=== PATIENT | female | born 1985 | race Caucasian/White ===

== ENCOUNTER 2017-01-07 11:04 | Emergency (ER) | payer MEDICAID | END 2017-01-07 11:40 | disposition left against medical advice (07) | LOC: CED 11:04 | DX: S67.10XA Crushing injury of unspecified finger(s), initial encounter (principal); Y93.55 Activity, bike riding; Z53.21 Procedure and treatment not carried out due to patient leaving prior to being seen by health care provider ==

== ENCOUNTER 2017-02-08 18:00 | Emergency (ER) | payer MEDICAID ==
[2017-02-08 18:11] VITALS: BP 129/77; PULSE 68; RESP 18; TEMP 97.9; O2SAT 95
--- NOTE | 2017-02-08 18:51 | UCPHY ---
H & P Time Seen by Provider: 02/08/17 18:37 Patient Type: Established HPI/ROS: This patient complains of right paraspinous cervical pain that extends from the lateral neck to the trapezius region. She injured the area moving her son's mode while basketball hoop in the driveway 3 days ago. She reports noticing a stretch and discomfort to that area when she lifted the basketball hoop then worsened when she moved to sandbag. Since that time she has taken Tylenol intermittent with mild improvement but reports today 7/10 achy pain. Pain worsened slightly with movement. No other exacerbating or alleviating factors. ROS: No midline pain. Neuro: No numbness tingling weakness. No recent head trauma. No headache. No confusion 7 point ROS is otherwise negative. Smoking Status: Former smoker Physical Exam: Physical Exam Vital signs are normal. General: No acute distress HEENT: Atraumatic. Neck: No midline tenderness. She has paraspinous muscular tenderness from the trapezius extensive lateral neck. She has increased pain with lateral flexion away from the affected side. She maintains good range of motion for flexion and extension. Eyes: Pupils equal and react to light. Extraocular motions are intact. Lungs: No respiratory distress. Cardiac: Brisk capillary refill is intact throughout. Skin: No rash or pallor. Neuro: Alert and oriented x3. She maintains normal light touch sensory exam bilateral upper extremities and lower extremities. She maintains 5/5 strength throughout upper and lower extremities and 1+ symmetric patellar DTRs bilaterally. with no sensorimotor deficits. Initial differential diagnosis: Muscle strain, disc herniation without radiculopathy, doubt abscess or other Constitutional: Initial Vital Signs Temperature (C) 36.6 C 02/08/17 18:06 Heart Rate 68 02/08/17 18:06 Respiratory Rate 18 02/08/17 18:06 Blood Pressure 129/77 H 02/08/17 18:06 O2 Sat (%) 95 02/08/17 18:06 O2 Delivery Mode Room Air Allergies/Adverse Reactions: No Known Allergies Allergy (Verified 01/21/15 11:17) Home Medications: Medication Instructions Recorded Methocarbamol [Robaxin 750 mg (*)] 750 - 1,500 mg PO QID PRN #30 tab 02/08/17 MDM/Departure - MDM ED Course/Re-evaluation: I counseled this. Patient regarding muscle strain - Depart Disposition: Home, Routine, Self-Care Clinical Impression: Strain of neck muscle Qualifiers: Encounter type: initial encounter Qualified Code(s): S16.1XXA - Strain of muscle, fascia and tendon at neck level, initial encounter Condition: Good Instructions: Cervical Strain (ED) Additional Instructions: Diagnosis: Neck muscle strain Plan: Ice 20 minutes at a time 3 times a day for the next 2 days. Ibuprofen-600 mg per 6 hours as needed Tylenol and methocarbamol muscle relaxant in addition. Gentle stretches as described. Follow up with primary care physician in 7-10 days if symptoms are ongoing despite the treatment plan. Return for any significant worsening despite the treatment plan Prescriptions: Methocarbamol [Robaxin 750 mg (*)] 750 - 1,500 mg PO QID PRN #30 tab PRN Reason: Muscle Spasms Referrals: Unknown,Unknown [Unknown] - As per Instructions - PQRS PQRS Measurement: NA
== END 2017-02-08 19:13 | disposition home or self-care (01) ==
LOC: CED 18:00
DX: S16.1XXA Strain of muscle, fascia and tendon at neck level, initial encounter (principal); Y92.008 Other place in unspecified non-institutional (private) residence as the place of occurrence of the external cause; X50.0XXA Overexertion from strenuous movement or load, initial encounter
CPT/HCPCS: 99214-PO; G0463-PO

== ENCOUNTER 2017-07-07 11:30 | Emergency (ER) | payer MEDICAID ==
[2017-07-07 11:37] VITALS: BP 130/75; PULSE 74; RESP 16; TEMP 97.7; O2SAT 96
[2017-07-07] MEDS ORDERED: CIPROFLOXACIN HCL/DEXAMETH 7.5 ML OTIC DROPS LEFTEAR ONE (11:49)
--- NOTE | 2017-07-07 11:53 | EDPHY ---
H & P Time Seen by Provider: 07/07/17 11:41 HPI/ROS: HPI Left ear pain. 32-year-old female by private vehicle with her kids. She has been swimming recently. She complains of worsening left ear pain for the last 3 days. She has had some drainage from the left ear. Denies any changes in hearing. No other complaints. ROS: Constitutional: No fever, no chills. No weakness. Eyes: No discharge. No changes in vision. ENT: No sore throat. No nasal congestion or rhinorrhea. As above. Respiratory: No cough. No shortness of breath. Musculoskeletal: No back pain. No neck pain. No myalgias or arthralgias. Skin: No rashes. Neurological: No headache. No focal weakness or altered sensation. Past medical history: No significant past medical history. Social history: Here with her kids. Nonsmoker. No alcohol. Physical Exam: General Appearance: Alert, no distress. This patient is responding to questions appropriately and in full sentences. This patient appears well- hydrated and well-nourished. Eyes: Pupils equal and round no pallor or injection. No lid edema, erythema or injection. ENT, Mouth: Mucous membranes are moist. The pharyngeal tissues are unremarkable. No edema or swelling. No asymmetry suggestive of abscess. No erythema or exudates. The right external auditory canal and tympanic membrane are normal on speculum exam. The left external auditory canal is inflamed but patent. The left tympanic membrane is mildly erythematous but landmarks are still identifiable. The tympanic membrane is intact. Exam is consistent with a otitis externa and early otitis media. Neurological: Motor sensory function is grossly intact. Cranial nerves are normal. Gait is normal. Skin: Warm and dry, no rashes. Musculoskeletal: Neck is supple and nontender. No pain on flexion of the neck. No cervical, submandibular or submental lymphadenopathy. Extremities are symmetrical. All joints range without pain or impingement. Psychiatric: No agitation. No depression. Database: EKG: Imaging: Procedures: Emergency department course: After my evaluation, the patient's medication allergies were reviewed. The diagnosis was discussed. She will be started on Ciprodex otic drops in the emergency department as well as amoxicillin orally. Plan will be to treat her with a combination of these 2 medications. Her vital signs have been reviewed and are normal. She does not appear toxic. She feels comfortable going home and I feel she is safe for discharge. I will prescribe her a limited number of Vicodin for pain control. She states that ibuprofen and Tylenol are not working for her. She is to follow up with her primary care physician for re- evaluation on Saturday or Saturday of this week. Return to emergency department precautions reviewed with her. All of her questions were answered. She was discharged in good condition. Differential Diagnosis: The differential diagnosis on this patient includes but is not limited to otitis media, otitis externa. Malignant otitis externa, osteomyelitis, retropharyngeal abscess, peritonsillar abscess unlikely. This represents a partial list of diagnoses considered. These considerations are based on history , physical exam, past history, reassessment and diagnostic testing. Smoking Status: Former smoker Constitutional: Initial Vital Signs Temperature (C) 36.5 C 07/07/17 11:31 Heart Rate 74 07/07/17 11:31 Respiratory Rate 16 07/07/17 11:31 Blood Pressure 130/75 H 07/07/17 11:31 O2 Sat (%) 96 07/07/17 11:31 O2 Delivery Mode Room Air Allergies/Adverse Reactions: No Known Allergies Allergy (Verified 01/21/15 11:17) Home Medications: Medication Instructions Recorded Amoxicillin Trihydrate 500 mg PO Q6HRS #30 cap 07/07/17 [Amoxicillin 500mg cap] Medical Decision Making - Data Points Medications Given: Discontinued Medications Hydrocodone Bitart/Acetaminophen ([place]eller 5/325mg Prepack#6) 1 btl TAKEHOME EDNOW ONE Stop: 07/07/17 11:57 Last Admin: 07/07/17 12:05 Dose: 1 btl Amoxicillin (Amoxicillin) 500 mg PO EDNOW ONE PRN Reason: Protocol Stop: 07/07/17 11:50 Last Admin: 07/07/17 12:07 Dose: Not Given Amoxicillin (Amoxicillin) 500 mg PO EDNOW ONE PRN Reason: Protocol Stop: 07/07/17 12:04 Last Admin: 07/07/17 12:06 Dose: 500 mg Ciprofloxacin/Dexamethasone (Ciprodex) 4 drops LEFTEAR BID ONE Stop: 07/07/17 11:50 Last Admin: 07/07/17 12:05 Dose: 1 btl Departure - Departure Disposition: Home, Routine, Self-Care Clinical Impression: Otitis externa, Otitis media Condition: Good Instructions: Hydrocodone/Acetaminophen (By mouth), Ciprofloxacin/ Dexamethasone (Into the ear), Otitis Externa (ED), Otitis Media (ED) Additional Instructions: Read and follow provided instructions. Follow-up with your primary care physician in 1-2 days for re-evaluation as discussed. Take medication as prescribed. Ibuprofen dosin mg every 6 hours with meals for the next 3 days only. Keller/Percocet dosin-2 every 4-[address] for [address] not drive on this medication. Ciprodex otic drops: 4 drops to left ear twice daily for 5-7 days. Take antibiotics as prescribed through entire course of treatment. Return to the emergency department for worsening symptoms, worsening pain, redness involving your ear or the side of her face, swelling, fever or other serious concerns. Referrals: SHEMAR ABDULLAHI,. [Primary Care Provider] - As per Instructions Prescriptions: Amoxicillin Trihydrate [Amoxicillin 500mg cap] 500 mg PO Q6HRS #30 cap
[2017-07-07] MEDS ORDERED: HYDROCOD/APAP 5/325 PREPACK#6 BTL TAKEHOME ONE (11:56)
== END 2017-07-07 12:15 | disposition home or self-care (01) ==
LOC: CED 11:30
DX: H60.92 Unspecified otitis externa, left ear (principal); Z87.891 Personal history of nicotine dependence

== ENCOUNTER 2018-03-12 13:03 | Emergency (ER) | payer MEDICAID ==
[2018-03-12] MEDS ORDERED: CIPROFLOXACIN HCL/DEXAMETH 7.5 ML OTIC DROPS RTEAR ONE (13:15)
[2018-03-12] MEDS ORDERED: IBUPROFEN 600 MG TAB PO ONE (13:16)
--- NOTE | 2018-03-12 13:21 | EDPHY ---
H & P Time Seen by Provider: 03/12/18 13:10 HPI/ROS: HPI Right ear pain. 33-year-old female by private vehicle. She has a history of urine infections. She states that in the week previous she has had an upper respiratory infection with nasal congestion. She reports that for the last day she has had worsening right ear pain. Denies any significant change in hearing. No facial swelling. No fever. No other complaints. She has not been swimming or flying. ROS: Constitutional: No fever, no chills. No weakness. Eyes: No discharge. No changes in vision. ENT: No sore throat. No nasal congestion or rhinorrhea. As above. Respiratory: No cough. No shortness of breath. Musculoskeletal: No back pain. No neck pain. No myalgias or arthralgias. Skin: No rashes. Neurological: No headache. Past medical history: As above. Otherwise no significant past medical history. Social history: Nonsmoker. Here by herself. Physical Exam: General Appearance: Alert, no distress. This patient is responding to questions appropriately and in full sentences. This patient appears well- hydrated and well-nourished. Eyes: Pupils equal and round no pallor or injection. No lid edema, erythema or injection. ENT: Speculum exam: Right ear external auditory canal is mildly edematous. The right ear tympanic membrane is edematous with partial loss of landmarks. Left ear auditory canal is clear and unremarkable. The left ear tympanic membrane is clear with normal identifiable and b[place]. No associated facial swelling, periauricular edema, or erythema. Neurological: Motor sensory function is grossly intact. Cranial nerves are normal. Gait is normal. Skin: Warm and dry, no rashes. Extremities are symmetrical. All joints range without pain or impingement. Psychiatric: No agitation. No depression. Database: EKG: Imaging: Procedures: Emergency department course: Vital signs reviewed and are normal. Patient's presentation is consistent with an otitis media with likely an otitis externa component. Plan will be to treat her with Ciprodex otic drops, amoxicillin and high-dose ibuprofen. She was started on all 3 these medications in the emergency department. She will be given prescriptions with him on discharge. She feels comfortable going home and I feel she is safe for discharge. Follow-up and return to emergency department precautions reviewed with her. All of her questions were answered. She was discharged in good condition. Differential Diagnosis: The differential diagnosis on this patient includes but is not limited to otitis media, otitis externa. Malignant otitis media, mastoiditis unlikely. This represents a partial list of diagnoses considered. These considerations are based on history, physical exam, past history, reassessment and diagnostic testing. Smoking Status: Former smoker Constitutional: Initial Vital Signs Temperature (C) 36.6 C 03/12/18 13:26 Heart Rate 78 03/12/18 13:26 Respiratory Rate 18 03/12/18 13:26 Blood Pressure 140/85 H 03/12/18 13:26 O2 Sat (%) 96 03/12/18 13:26 O2 Delivery Mode Room Air Allergies/Adverse Reactions: No Known Allergies Allergy (Verified 01/21/15 11:17) Home Medications: Medication Instructions Recorded Amoxicillin Trihydrate 500 mg PO Q6 #28 cap 03/12/18 [Amoxicillin 500mg cap] Medical Decision Making - Data Points Medications Given: Discontinued Medications Amoxicillin (Amoxicillin) 500 mg PO EDNOW ONE PRN Reason: Protocol Stop: 03/12/18 13:17 Last Admin: 03/12/18 13:31 Dose: 500 mg Ciprofloxacin/Dexamethasone (Ciprodex) 4 drops RTEAR BID ONE Stop: 03/12/18 13:16 Last Admin: 03/12/18 13:31 Dose: 1 btl Ibuprofen (Motrin) 600 mg PO EDNOW ONE Stop: 03/12/18 13:17 Last Admin: 03/12/18 13:32 Dose: 600 mg Departure - Departure Disposition: Home, Routine, Self-Care Clinical Impression: Otitis media, Otitis externa Condition: Good Instructions: Otitis Externa (ED), Ear Infection (ED) Additional Instructions: Read and follow provided instructions. Follow-up with your primary care physician in 2-3 days for re-evaluation. Take antibiotic as prescribed through entire course of treatment. Ibuprofen dosin mg every 6 hours with meals for the next 3 days only. Take only as needed for pain. Ciprodex otic drops: 4 drops to affected ear twice daily for 5 days. Return to the emergency department for worsening pain, fever, facial swelling, discoloration or other serious concerns. Referrals: SHEMAR ABDULLAHI [Other] - As per Instructions Prescriptions: Amoxicillin Trihydrate [Amoxicillin 500mg cap] 500 mg PO Q6 #28 cap
[2018-03-12 13:27] VITALS: BP 140/85
== END 2018-03-12 13:51 | disposition home or self-care (01) ==
LOC: CED 13:03
DX: H66.91 Otitis media, unspecified, right ear (principal); H60.91 Unspecified otitis externa, right ear; Z87.891 Personal history of nicotine dependence

== ENCOUNTER 2018-08-08 19:23 | Emergency (ER) | payer MEDICAID ==
--- NOTE | 2018-08-08 19:37 | EDPHY ---
H & P Time Seen by Provider: 08/08/18 19:33 HPI/ROS: CHIEF COMPLAINT: Right ankle pain HISTORY OF PRESENT ILLNESS: 33-year-old female took a fall landing on the ground after missing a step on a curb. She went crash into the ground but did not injure anything else 1 puff landing. She denies any head injury or thoracoabdominal pain. However when turning she did in fact turned over the right ankle. She complains of severe pain over the lateral aspect of the right ankle. She is unable to weightbear, as she is in so much pain she has been T been tried. Pain itself is limited to the area soft tissue swelling lateral aspect of the ankle and does not radiate up to the knee. This just happened an hour ago. She is not taking any medications for this. It does not radiate. It is severe. It is an ache. Pt queried and denies: no prior hx of substance abuse, no family history of substance abuse' or nocurrent or prior psychiatric history. 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 Integument - no rashes or wounds Neurological - no numbness, tingling, or paresthesias. . Smoking Status: Former smoker Physical Exam: General Appearance: Alert, crying in pain. Good eye contact.. Afebrile. Extremities: There is 3+ swelling localized to the lateral aspect of the right tibial area distally. I am unable to perform a drawer exam could she is hurting so much. The skin itself is intact. However the swelling is strictly limited to the lower aspect does not involve the anterior fibular talar ligament. There is no tenderness about the knee and there is full range of motion at the knee Neurological: NV intact. Skin: Skin is intact. Warm and dry, no rashes. no lymphangitis. . Constitutional: Initial Vital Signs Heart Rate 96 08/08/18 19:26 Respiratory Rate 20 08/08/18 19:26 Blood Pressure 150/113 H 08/08/18 19:26 O2 Sat (%) 98 08/08/18 19:26 O2 Delivery Mode Room Air Allergies/Adverse Reactions: No Known Allergies Allergy (Verified 08/08/18 20:44) Home Medications: Medication Instructions Recorded Hydrocodone/APAP 5/325 [[place] 1 tab PO Q4 #9 tab 08/08/18 5325 (*)] Medical Decision Making - Diagnostics Imaging: Discussed imaging studies w/ assembler motor vehicle Radiologist ED Course/Re-evaluation: Upon initial evaluation it I recommended and discussed with her the prospect of getting her pain medications. As she has no prior no history of substance abuse or family history of such will go ahead and start with a pain shot, morphine 6 mg subcu [place] Prescription Drug Monitoring Program checked: Thirty-six tablets of tramadol from August to November Fifteen tablets of oxycodone in August of 2017 She notes the left middle finger injury was the 1 this she needed the oxycodone 4. I have cautioned her about use of narcotics and to throw them out as soon as possible. There is a small avulsion fracture of the tip of the fibula. No other fracture seen. Films interpreted by radiologist, reviewed by me and discussed with radiologist. I met with the patient and discussed findings. She likewise does not believe she pill weight bear thus we discussed conservative management with crutches though going through the walking motions so as to get some early mobility. Differential Diagnosis: The differential diagnosis includes but is not limited to: Fracture, Sprain, Strain, Dislocation, Nerve injury, Contusion Departure - Departure Disposition: Home, Routine, Self-Care Clinical Impression: Avulsion fracture of ankle Qualifiers: Encounter type: initial encounter Fracture type: closed Laterality: left Qualified Code(s): S82.892A - Other fracture of left lower leg, initial encounter for closed fracture Condition: Good Instructions: Avulsion Fracture (ED) Additional Instructions: Weight-bearing as tolerated Use crutches if you are not able to walk without thumb. However to put some weight on the foot so at least ago slow walking motion. When the swelling is down, apply the air stirrup brace that we sent home with you. Initially is too large of area of swelling to allow it to fit correctly. Return to work 3 days with limitations such as only up sporadically and crutches walking. With a pain: Tylenol or hydrocodone. Also, ibuprofen works well. Further when you no longer need the hydrocodone: Tylenol and Advil works well together the combination: Tylenol 1000 mg and 600 mg every 8 hours as needed for the pain. Referrals: Nagi Weber MD [Medical Doctor] - As per Instructions Stand Alone Forms: Work Limited Duty Prescriptions: Hydrocodone/APAP 5/325 [[place] 5/325 (*)] 1 tab PO Q4 #9 tab
[2018-08-08] MEDS ORDERED: HYDROCOD/APAP 5/325 PREPACK#6 BTL TAKEHOME ONE (20:59)
[2018-08-08 21:36] VITALS: BP 140/85
== END 2018-08-08 21:30 | disposition home or self-care (01) ==
LOC: CED 19:23
PROC: 2W3QX1Z Immobilization of Right Lower Leg using Splint (ICD-10-PCS; principal; 2018-08-08)
DX: S82.401A Unspecified fracture of shaft of right fibula, initial encounter for closed fracture (principal); X50.1XXA Overexertion from prolonged static or awkward postures, initial encounter; Y92.480 Sidewalk as the place of occurrence of the external cause
CPT/HCPCS: 73610-PO; J2270